=== PATIENT | female | born 1960 | race Caucasian/White ===

== ENCOUNTER 2024-08-09 00:48 | Emergency (ER) | payer BC ==
[2024-08-09 01:30] LABS: BASOPHILS ABSOLUTE AUTO 0.1 K/mm3 (0.0-0.2); BASOPHILS PERCENT AUTO 0.7 % (0.0-1.0); EOSINOPHILS ABSOLUTE AUTO 0.1 K/mm3 (0.0-0.4); EOSINOPHILS PERCENT AUTO 1.1 % (0.0-6.0); HEMATOCRIT 40.3 % (37.0-47.0); HEMOGLOBIN 12.9 gm/dl (12.0-16.0); IMMATURE GRAN ABSOLUTE AUTO 0.04 K/mm3 (0.00-0.05); IMMATURE GRAN PERCENT AUTO 0.4 % (0.0-0.4); LYMPHOCYTES ABSOLUTE AUTO 2.2 K/mm3 (1.0-4.8); LYMPHOCYTES PERCENT AUTO 22.8 % (24.0-44.0); MEAN CORPUSCULAR HEMOGLOBIN 29.1 pg (28.0-32.0); MEAN CORPUSCULAR VOLUME 90.8 fl (83.0-99.0); MEAN PLATELET VOLUME 10.3 fl (9.4-12.3); MONOCYTES ABSOLUTE AUTO 0.7 K/mm3 (0.0-0.8); MONOCYTES PERCENT AUTO 7.8 % (0.0-8.0); NEUTROPHILS ABSOLUTE AUTO 6.4 K/mm3 (1.8-7.7); NEUTROPHILS PERCENT AUTO 67.2 % (41.0-71.0); PLATELET COUNT,PLT 220 K/mm3 (150-400); RED BLOOD CELL COUNT 4.44 M/mm3 (4.10-5.30); WHITE BLOOD CELL COUNT,WBC 9.48 K/mm3 (3.9-11.3)
[2024-08-09] MEDS: Sodium Chloride 0.9% 1,000 ML IV SCH (02:00)
[2024-08-09] MEDS: Metoclopramide 10 MG/2 ML SDV IVPUSH ONE (02:04)
[2024-08-09] MEDS: HYDROmorphone 0.5 MG/0.5 ML Syringe IVPUSH ONE (02:04)
[2024-08-09] MEDS: Sodium Chloride 0.9% 10 ML Syringe FLUSH PRN (02:07)
[2024-08-09 02:11] LABS: A/G RATIO 0.8 (1-2); ALBUMIN 3.2 g/dl (3.4-5.0); ANION GAP 14.6 (5-15); BILIRUBIN TOTAL 0.5 mg/dL (0.2-1.0); BUN/CREATININE RATIO 16.7 (14-18); C-REACTIVE PROTEIN 0.41 mg/dL (<0.30); CALCIUM 8.6 mg/dL (8.5-10.1); CREATININE 0.9 mg/dL (0.55-1.02); EST CRCL DRUG DOSING (CG) 54.53 mL/min; MAGNESIUM 2.1 mg/dL (1.8-2.4); TSH 14.091 uIU/mL (0.358-3.74)
[2024-08-09 02:21] LABS: POTASSIUM,K 3.6 mEq/L (3.5-5.1)
[2024-08-09] MEDS: Heparin Sodium 5,000 Units/ML Vial IVPUSH ONE (03:01)
[2024-08-09] MEDS: Heparin Sodium/D5W 25,000 UNITS/500 ML BAG IV SCH (03:16)
[2024-08-09 03:22] LABS: INR 0.97; PROTHROMBIN TIME 10.3 SECONDS (9.7-12.0)
[2024-08-09 03:24] LABS: PTT,PARTIAL THROMBOPLSTIN TIME 25.9 SECONDS (21.7-31.4)
[2024-08-09] MEDS: Nitroglycerin/D5W 25 MG/250 ML BOTTLE IV SCH (03:24)
[2024-08-09] MEDS: Iopamidol 755 Mg/ML 100 ML Bottle IVPUSH ONE (04:09)
== END 2024-08-09 05:40 ==
LOC: JD.ED 00:48
DX: I21.4 Non-ST elevation (NSTEMI) myocardial infarction (principal); R79.89 Other specified abnormal findings of blood chemistry; Z91.048 Other nonmedicinal substance allergy status; Z79.890 Hormone replacement therapy; Z79.899 Other long term (current) drug therapy
CPT/HCPCS: 36415; 71045; 71275; 80053; 83735; 83880; 84443; 84484; 85025; 85379; 85610; 85730; 86140; 93005; 96365; 96366; 96368; 96375; 99285; J1644; J2305; J2765; J3490; J7030; Q9967; 93010